=== PATIENT | female | born 1935 | race Caucasian/White ===

== ENCOUNTER 2019-04-29 09:00 | Inpatient (IN) | payer MEDICARE, BC ==
[~2019-04-29] VITALS: Ht 154.9 cm; Wt 61.7 kg
[2019-04-29] VITALS (9 sets, daily range): BP systolic 61–154; BP diastolic 34–52
[2019-04-29] MEDS ORDERED: ASPI81TA31 PO (09:19)
[2019-04-29] MEDS ORDERED: PRAV40TA3 PO (09:19)
[2019-04-29] MEDS ORDERED: NATE60TA4 PO (09:19)
--- NOTE | 2019-04-29 09:19 | NUR ---
THE MEDICATION LIST WAS REVIEWED WITH SON, RANCHO CAREY, AT BEDSIDE.
[2019-04-29 10:35] LABS: BASOPHILS # (AUTO) 0.1 K/uL (0.0-8.0); BASOPHILS % (AUTO) 0.8 % (0.0-2.0); EOSINOPHILS # (AUTO) 0.2 K/uL (0.0-0.7); EOSINOPHILS % (AUTO) 2.9 % (0.0-7.0); HEMATOCRIT 33.6 % (31.2-41.9); HEMOGLOBIN 11.5 g/dL (10.9-14.3); LYMPHOCYTES # (AUTO) 1.8 K/uL (20.0-40.0); LYMPHOCYTES % (AUTO) 22.8 % (20.5-51.5); MEAN CORPUSCULAR HEMOGLOBIN 31.1 uug (24.7-32.8); MEAN CORPUSCULAR HGB CONC 34 g/dL (32.3-35.6); MEAN CORPUSCULAR VOLUME 90.9 fL (75.5-95.3); MONOCYTES # (AUTO) 0.4 K/uL (2.0-10.0); MONOCYTES % (AUTO) 5.1 % (0.0-11.0); NEUTROPHILS # (AUTO) 5.5 K/uL (1.8-8.9); NEUTROPHILS % (AUTO) 68.4 % (38.5-71.5); PLATELET COUNT (AUTO) 217 K/uL (179-408)
[2019-04-29 10:45] LABS: CARBON DIOXIDE 29 mmol/L (21-32); CHLORIDE 104 mmol/L (98-107); CREATININE 1.4 mg/dL (0.6-1.3); GLUCOSE 121 mg/dL (74-106); POTASSIUM 4.6 mmol/L (3.5-5.1); UREA NITROGEN, BLOOD 37 mg/dL (7-18)
[2019-04-29 10:47] LABS: ETHANOL < 3 MG/DL (0-0)
--- NOTE | 2019-04-29 10:50 | NUR ---
Notified by Caleb, Psych intake states pt's psychiatrics is Dr Lerma.
[2019-04-29 10:51] LABS: ALANINE AMINOTRANSFERASE 21 U/L (14-59); ALKALINE PHOSPHATASE 102 U/L (50-136); ASPARTATE AMINOTRANSFERASE 17 U/L (15-37); BILIRUBIN,DIRECT 0.1 mg/dL (0.0-0.2); BILIRUBIN,TOTAL 0.3 mg/dL (0.2-1.0); TOTAL PROTEIN, SERUM 6.7 g/dL (6.4-8.2)
[2019-04-29 11:19] LABS: ACETAMINOPHEN 4.5 ug/mL (10-30)
[2019-04-29] MEDS ORDERED: Z GUARD REMEDY PASTE 57 GM TUBE TOP PRN (12:00)
[2019-04-29] MEDS ORDERED: ACETAMINOPHEN 325 MG TABLET PO PRN (12:00)
[2019-04-29] MEDS ORDERED: MAGNESIUM HYDROXIDE 30 ML LIQUID UDC PO PRN (12:00)
--- NOTE | 2019-04-29 12:00 | NUR ---
RECEIVED PATIENT FROM ER. KIERRA RN GAVE REPORT. PATIENT ARRIVED IN STABLE CONDITION. AOX4. LT. FA IV INTACT AND FLUSHED. LT. 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 PT. IS SR ON TELEMETRY HR 75. DENIES SOB, PAIN OR DIZZINESS AT THIS TIME. SAFETY AND FALL PRECAUTIONS IN PLACE. CALL LIGHT IN REACH. BED IN LOW AND LOCKED POSITION. WILL CONTINUE TO MONITOR.
[2019-04-29] MEDS: IV NS 1000 ML 1,000 ML IV PRN (14:33)
[2019-04-29 17:15] LABS: *BILIRUBIN,URIN NEGATIVE (NEGATIVE); *BLOOD, URINE NEGATIVE (NEGATIVE); *CLARITY,URINE CLOUDY (CLEAR); *COLOR,URINE YELLOW (YELLOW); *KETONES,URINE NEGATIVE (NEGATIVE); LEUKOCYTE ESTERASE ,URINE NEGATIVE (NEGATIVE); NITRITE, URINE NEGATIVE (NEGATIVE); PH,URINE 6.5 (5.0-8.0); UGLUCOSE NEGATIVE (NEGATIVE)
[2019-04-29 17:21] LABS: BACTERIA,URINE FEW /HPF (NONE SEEN); RBC,URINE 0-3 /HPF (0-3); SQUAMOUS EPITHELIAL CELL,UR MODERATE /HPF (NONE SEEN); WBC,URINE 0-3 /HPF (0-3)
[2019-04-29] MEDS: NATEGLINIDE 60 MG TABLET PO SCH (17:25)
[2019-04-29 17:26] LABS: *AMPHETAMINE, URINE NEGATIVE (NEGATIVE); *BARBITURATE, URINE NEGATIVE (NEGATIVE); *CANNABINOID, URINE NEGATIVE (NEGATIVE); *COCCAINE, URINE NEGATIVE (NEGATIVE); *OPIATE, URINE NEGATIVE (NEGATIVE); *PHENCYCLIDINE SCREEN,URINE NEGATIVE (NEGATIVE)
--- NOTE | 2019-04-29 18:36 | NUR ---
PATIENT AOX4. LT. FA IV INTACT. PT. IS SR ON TELEMETRY HR 75 SOMETIMES V-PACED. DENIES SOB, PAIN OR DIZZINESS THROUGH THE SHIFT.. SAFETY AND FALL PRECAUTIONS IN PLACE. CALL LIGHT IN REACH. BED IN LOW AND LOCKED POSITION. WILL REPORT TO ONCOMING NURSE..
[2019-04-29] MEDS ORDERED: IV NORMAL SALINE 500 ML IV ONE ×2 (21:00→22:30)
--- NOTE | 2019-04-29 21:00 | NUR ---
Received patient in bed awake A&ox3-4. No SOB. No n/v, denies dizziness. BP noted 66/43, P-71 on L arm and BP on R arm 73/44, P-67. Patient is asymptomatic and stated that her normal BP is 70s/50s. Checked her orthostatic BP on her R arm and got the ff. BPs lying- 61/34, P-68, sitting 64/41, P-69 and standing 62/38, P-72. Patient denies any dizziness and was able to ambulate w/ assist to go to the bathroom. Informed Suleiman RADIOPHARMACIST w/ order to recheck BP manually. Rechecked BP manually on her R arm and got 61/40. Informed Suleiman about the reading w/ n.o for NS 500cc bolus. Will continue to monitor patient
[2019-04-29] MEDS: ATORVASTATIN 10 MG TABLET PO SCH (21:07)
[2019-04-29] MEDS: ONDANSETRON 4 MG/2 ML VIAL IV PRN (21:33)
--- NOTE | 2019-04-29 22:29 | NUR ---
Latest BP 81/50, P-64 after NS 500cc bolus, informed Suleiman BOND w/ n.o to give another NS 500cc bolus.
--- NOTE | 2019-04-29 23:30 | NUR ---
Latest BP 93/49, P-70 after another NS 500cc bolus, Suleiman BOND made aware. Patient is asymptomatic, sleeping comfortably. Will continue to monitor
[2019-04-30 04:00] VITALS: BP 96/68
--- NOTE | 2019-04-30 06:20 | NUR ---
Patient slept intermittently. No SOB noted. No complaints of n/v, no dizziness. Latest BP 96/68, P-65. All needs attended. Will endorse accordingly
[2019-04-30 07:02] LABS: BASOPHILS # (AUTO) 0.1 K/uL (0.0-8.0); EOSINOPHILS # (AUTO) 0.3 K/uL (0.0-0.7); EOSINOPHILS % (AUTO) 4.2 % (0.0-7.0); HEMATOCRIT 31.1 % (31.2-41.9); HEMOGLOBIN 10.5 g/dL (10.9-14.3); LYMPHOCYTES # (AUTO) 2.2 K/uL (20.0-40.0); LYMPHOCYTES % (AUTO) 30.2 % (20.5-51.5); MEAN CORPUSCULAR HEMOGLOBIN 31.1 uug (24.7-32.8); MEAN CORPUSCULAR HGB CONC 34 g/dL (32.3-35.6); MEAN CORPUSCULAR VOLUME 92.2 fL (75.5-95.3); MONOCYTES # (AUTO) 0.4 K/uL (2.0-10.0); MONOCYTES % (AUTO) 5.3 % (0.0-11.0); NEUTROPHILS # (AUTO) 4.2 K/uL (1.8-8.9); NEUTROPHILS % (AUTO) 59.3 % (38.5-71.5); PLATELET COUNT (AUTO) 180 K/uL (179-408); RED BLOOD CELL COUNT(AUTO) 3.37 MIL/uL (3.63-4.92); WHITE BLOOD COUNT (AUTO) 7.2 K/uL (3.8-11.8)
[2019-04-30 07:10] LABS: CREATININE 1.2 mg/dL (0.6-1.3); PHOSPHOROUS 2.9 mg/dL (2.5-4.9); POTASSIUM 4.6 mmol/L (3.5-5.1)
[2019-04-30 07:25] LABS: THYROID STIMULATING HORMONE 1.605 mIU/mL (0.358-3.740)
--- NOTE | 2019-04-30 07:30 | NUR ---
Received patient in bed, awake and verbally responsive. No signs of distress noted. No SOB. No complain of pain or discomfort. IVF infusing well on RFA, No signs of infiltration noted. Kept comfortable. Will continue to monitor.
[2019-04-30 07:37] LABS: MAGNESIUM 1.1 mg/dL (1.8-2.4)
[2019-04-30] MEDS: ASPIRIN 81 MG TAB.CHEW PO SCH (08:25)
[2019-04-30] MEDS: NATEGLINIDE 60 MG TABLET PO SCH ×2 (08:25→17:16)
[2019-04-30] MEDS: MAGNESIUM SULFATE/D5W 100 ML IV SCH ×4 (10:06→13:32)
[2019-04-30] MEDS ORDERED: IOHEXOL 350 100 ML INFUS..BTL ONE (10:51)
[2019-04-30] MEDS ORDERED: IV NORMAL SALINE 250 ML IV ONE (10:51)
[2019-04-30] MEDS ORDERED: SWABABLE VALVE TRANSFER SET EA MC ONE (10:51)
--- NOTE | 2019-04-30 11:30 | NUR ---
patient was Picked up for CTA of Carotids and Chest.
[2019-04-30 11:31] VITALS: BP 116/32
--- NOTE | 2019-04-30 12:15 | NUR ---
Patient came back from CTA of carotids ans chest.
[2019-04-30 15:55] VITALS: BP 122/33
[2019-04-30] MEDS: IV NS 1000 ML 1,000 ML IV PRN (17:07)
--- NOTE | 2019-04-30 18:21 | NUR ---
Patient in bed, awake and verbally responsive. No signs of distress noted. No SOB. No complain of Pain or discomfort. On strict I and O. On IVF infusing well on Left Forearm, Magnesium was 1.1, 4G magnesium IV was given and tolerated well. All needs attended. kept clean and comfortable. Will endorse to Oncoming Nurse.
[2019-04-30 19:53] VITALS: BP 142/45
[2019-04-30] MEDS: ATORVASTATIN 10 MG TABLET PO SCH (20:26)
[2019-04-30] MEDS: ONDANSETRON 4 MG/2 ML VIAL IV PRN (22:14)
[2019-05-01] VITALS: BP 149/69
[2019-05-01 04:00] VITALS: BP 159/58
[2019-05-01] MEDS: ONDANSETRON 4 MG/2 ML VIAL IV PRN (04:40)
--- NOTE | 2019-05-01 06:22 | NUR ---
Patient slept intermittently. No SOB noted. c/o nausea, PRN Zofran given x 2 this shift. IV access on RFA 22g intact and patent w/ IVF infusing. All needs attended. Will endorse accordingly
[2019-05-01 06:54] LABS: CREATININE 1.2 mg/dL (0.6-1.3); POTASSIUM 4.6 mmol/L (3.5-5.1)
--- NOTE | 2019-05-01 07:20 | NUR ---
Received Patient in bed, awake and verbally responsive. No signs of distress noted. No SOB. No complain of pain or Discomfort. No complain of Nausea or Vomiting. Kept comfortable. Kept the call light within easy reach. Will continue to monitor.
[2019-05-01] MEDS: NATEGLINIDE 60 MG TABLET PO SCH ×2 (07:34→16:30)
[2019-05-01 07:40] LABS: BASOPHILS # (AUTO) 0.1 K/uL (0.0-8.0); BASOPHILS % (AUTO) 0.8 % (0.0-2.0); EOSINOPHILS # (AUTO) 0.3 K/uL (0.0-0.7); EOSINOPHILS % (AUTO) 4.5 % (0.0-7.0); HEMATOCRIT 30.2 % (31.2-41.9); HEMOGLOBIN 10.5 g/dL (10.9-14.3); LYMPHOCYTES # (AUTO) 2.1 K/uL (20.0-40.0); MEAN CORPUSCULAR HEMOGLOBIN 33.1 uug (24.7-32.8); MEAN CORPUSCULAR HGB CONC 35 g/dL (32.3-35.6); MEAN CORPUSCULAR VOLUME 95.7 fL (75.5-95.3); MONOCYTES # (AUTO) 0.5 K/uL (2.0-10.0); MONOCYTES % (AUTO) 6.1 % (0.0-11.0); NEUTROPHILS # (AUTO) 4.7 K/uL (1.8-8.9); NEUTROPHILS % (AUTO) 61.6 % (38.5-71.5); PLATELET COUNT (AUTO) 193 K/uL (179-408); RED BLOOD CELL COUNT(AUTO) 3.16 MIL/uL (3.63-4.92); WHITE BLOOD COUNT (AUTO) 7.6 K/uL (3.8-11.8)
[2019-05-01] MEDS: ASPIRIN 81 MG TAB.CHEW PO SCH (08:32)
[2019-05-01 11:02] VITALS: BP 155/45
[2019-05-01 15:37] VITALS: BP 144/55
--- NOTE | 2019-05-01 18:06 | NUR ---
Patient is awake, alert and verbally responsive. No signs of distress noted. No SOB. No complain of Pain or discomfort. All due medications given as ordered. Kept comfortable. Kept the call light within easy reach. Will endorse to Oncoming Nurse.
--- NOTE | 2019-05-01 19:00 | NUR ---
PATIENT ALERT ORIENTED, NO SOB NO CHEST PAIN, TELE MONITOR, A PACING AT THIS TIME, NO COMPLAIN OF PAIN, BED ALARMS WAS ON, ASSISTED WITH TOILETING. CONT TO MONITOR.
[2019-05-01 19:43] VITALS: BP 143/44
[2019-05-01] MEDS: ATORVASTATIN 10 MG TABLET PO SCH (20:59)
[2019-05-02 00:52] VITALS: BP 143/40
[2019-05-02 04:27] VITALS: BP 107/41
--- NOTE | 2019-05-02 06:42 | NUR ---
PATIENT ALERT ORIENTED NO SOB NO CHEST PAIN, TELE MONITOR A PACING, PATIENT HAS NO COMPLAIN OF PAIN AT THIS TIME, ASSISTED WITH TOILETING, CONT TO MONITOR. V/S STABLE.
[2019-05-02] MEDS: NATEGLINIDE 60 MG TABLET PO SCH (08:46)
[2019-05-02] MEDS: ASPIRIN 81 MG TAB.CHEW PO SCH (08:46)
--- NOTE | 2019-05-02 11:00 | NUR ---
AWAKE ALERT AND ORIENTED SHE IS BEING PREPPED FOR DISCHARGE PATIENT STATED THAT HE SON SHRADDHA WILL BE HERE TO PICK HER UP.
[2019-05-02 11:30] VITALS: BP_SYST 128; BP_SYST 141; BP_DIAS 36; BP_DIAS 41
--- NOTE | 2019-05-02 14:15 | NUR ---
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
--- NOTE | 2019-05-02 14:20 | NUR ---
PATIENT DISCHARGED WITH ALL OF HER PERSONAL BELONGINGS ASSISTED INTO HER SONS CAR IN SATISFACTORY CONDITION.
== END 2019-05-02 14:20 | DRG 640 ==
LOC: ER 09:00 → TELE3 11:38
PROVIDERS: ADMIT Nurse Practitioner Acute Care; ATTEND Nurse Practitioner Acute Care
DX: E86.0 Dehydration (principal); N17.0 Acute kidney failure with tubular necrosis; E44.0 Moderate protein-calorie malnutrition; I95.1 Orthostatic hypotension; I08.0 Rheumatic disorders of both mitral and aortic valves; E11.51 Type 2 diabetes mellitus with diabetic peripheral angiopathy without gangrene; Z95.810 Presence of automatic (implantable) cardiac defibrillator; I70.8 Atherosclerosis of other arteries; I67.2 Cerebral atherosclerosis; I65.21 Occlusion and stenosis of right carotid artery; R40.2362 Coma scale, best motor response, obeys commands, at arrival to emergency department; R40.2142 Coma scale, eyes open, spontaneous, at arrival to emergency department; R40.2252 Coma scale, best verbal response, oriented, at arrival to emergency department; M46.00 Spinal enthesopathy, site unspecified; Z90.49 Acquired absence of other specified parts of digestive tract; E78.5 Hyperlipidemia, unspecified; K21.9 Gastro-esophageal reflux disease without esophagitis; F03.90 Unspecified dementia, unspecified severity, without behavioral disturbance, psychotic disturbance, mood disturbance, and anxiety; Z95.0 Presence of cardiac pacemaker; Z91.81 History of falling; Z86.73 Personal history of transient ischemic attack (TIA), and cerebral infarction without residual deficits; I70.0 Atherosclerosis of aorta; Z88.0 Allergy status to penicillin
CPT/HCPCS: 36415; 70030-TC; 70450; 71045; 71046; 71275; 80307; 83735; 84100; 84443; 85025; 87086; 93005; 93307; 93880; A4663; G0378; G0480; G0480-TC; J2405; J3475; J7030; J7040; J7050; Q9967